=== PATIENT | male | born 1975 | race Caucasian/White ===

== ENCOUNTER 2017-02-04 19:57 | Emergency (ER) | payer OTHER ==
[2017-02-04] MEDS ORDERED: Ketorolac INJ* 60 MG/2 ML VIAL IM ONE (22:09)
[2017-02-04 22:36] VITALS: BP 98/68
--- NOTE | 2017-02-04 22:51 | RAD ---
INDICATION: Hematuria, back pain and hematospermia. COMPARISON: There are no prior studies available for comparison. TECHNIQUE: A CT scan of the abdomen and pelvis was performed without intravenous or oral contrast. Contiguous axial sections were obtained from the lung bases through the symphysis pubis. Images were reconstructed in the coronal and sagittal planes. FINDINGS: The lung bases are clear. No pleural effusion is present. The liver and spleen are normal in size without significant focal abnormality on this noncontrast study. The patient is status post cholecystectomy. The pancreas appears to be within normal limits. The adrenal glands and kidneys are normal in size. No renal calculi or hydronephrosis is seen. The prostate gland appears mildly enlarged. The seminal vesicles appear bilaterally symmetric. The aorta is normal in caliber without significant calcific plaque. No significant enlarged retroperitoneal lymph nodes are seen. The stomach, small and large bowel appear nondistended. The appendix is within normal limits. There is mild descending and sigmoid diverticulosis without evidence for diverticulitis. There is a small periumbilical hernia containing fat. No free intraperitoneal air or fluid is seen. No significant focal osseous abnormality is seen. IMPRESSION: 1. NO EVIDENCE FOR ACUTE FINDING. 2. NO CAUSE FOR THE PATIENT'S HEMATURIA IS SEEN. CONSIDER AN OUTPATIENT CT UROGRAM FOR FURTHER EVALUATION.
[2017-02-04] MEDS ORDERED: HYDROcodone/ACETAMIN 5-325 MG* 1 TAB PO ONE (23:14)
[2017-02-04] MEDS ORDERED: Cyclobenzaprine TAB* 10 MG PO ONE (23:15)
--- NOTE | 2017-02-16 07:11 | UC ---
otilia Ag Timothy, scribed for Rossana Toussaint MD on 02/04/17 at 2043 . Back Pain HPI - HPI Summary HPI Summary: Cristóbal Monge is a 41 yo male presenting to [facility] with 8/10 burning lower back pain for the past day, with blood in his semen 2 days ago, as well as 10 years ago. He has had similar episodes of blood in his semen 2 months ago, 6-8 times between then and now. He states he had back pain in September 2016.He denies any abd pain. He has been driving to [employer] and renovating his house recently. He was advised by his urologist and PCP to present to [facility]. His MHx includes Lyme disease 10 years ago, bronchitis, cholecystectomy , herpes II, depression. - History of Current Complaint Chief Complaint: UCBackPain Stated Complaint: BACK PAIN Time Seen by Provider: 02/04/17 20:23 Hx Obtained From: Patient Onset/Duration: Gradual Onset, Lasting Days, Still Present Timing: Constant Severity Initially: Moderate Severity Currently: Moderate Pain Intensity: 8 Pain Scale Used: 0-10 Numeric Back Pain: Is Discrete @ - lower back Character: Burning Aggravating: Nothing Alleviating: Nothing Associated Signs And Symptoms: Positive: Abdominal Pain, Other - blood in semen - Allergies/Home Medications Allergies/Adverse Reactions: Allergies Allergy/AdvReac Type Severity Reaction Status Date / Time No Known Allergies Allergy Verified 06/25/16 08:44 PMH/Surg Hx/FS Hx/Imm Hx Endocrine History Of: Denies: Diabetes, Thyroid Disease Cardiovascular History Of: Denies: Cardiac Disorders, Hypertension Respiratory History Of: Reports: Bronchitis Denies: COPD, Asthma GI/ History Of: Denies: Ulcer Psychological History Of: Reports: Depression - Surgical History Surgical History: Yes Surgery Procedure, Year, and Place: sublingual gland removedWISDOM TEETH. LASIK. CHOLECYSTECTOMY - Family History Known Family History: Negative: Renal Disease - Social History Lives: With Family Alcohol Use: None Substance Use Type: None Smoking Status (MU): Former Smoker Type: Cigarettes Amount Used/How Often: 1/2 PPD FOR 5 YRS WHILE IN COLLEGE Length of Time of Smoking/Using Tobacco: 5 YRS Have You Smoked in the Last Year: No When Did the Patient Quit Smoking/Using Tobacco: 1999 Review of Systems Constitutional: Negative Skin: Negative Eyes: Negative ENT: Negative Respiratory: Negative Cardiovascular: Negative Gastrointestinal: Negative Genitourinary: Other - blood in semen Motor: Negative Neurovascular: Negative Musculoskeletal: Other: - lower back pain Neurological: Negative Psychological: Negative All Other Systems Reviewed And Are Negative: Yes Physical Exam Triage Information Reviewed: Yes Appearance: No Pain Distress, Well-Nourished, Ill-Appearing Vital Signs: Initial Vital Signs Temp 100 F 02/04/17 20:15 Pulse 97 02/04/17 20:15 Resp 18 02/04/17 20:15 BP 143/70 02/04/17 20:15 Pulse Ox 100 02/04/17 20:15 Vital Signs Reviewed: Yes Eyes: Positive: Conjunctiva Clear. Negative: Discharge ENT: Positive: Hearing grossly normal. Negative: Muffled/hoarse voice Neck: Positive: Supple, Nontender Respiratory: Positive: Lungs clear, Normal breath sounds, No respiratory distress Cardiovascular: Positive: RRR, No Murmur, Pulses Normal, Brisk Capillary Refill Musculoskeletal: Positive: Strength Intact, ROM Intact, Other: - pain in bilateral paraspinus lumbar region. Back spasms. Neurological: Positive: Alert, Muscle Tone Normal Psychological Exam: Normal Psychological: Positive: Age Appropriate Behavior Skin Exam: Normal Skin: Negative: rashes Diagnostics - Radiology CT A/P Xray Interpretation: No Acute Changes - No evidence for acute finding. No cause for the patient's hematuria is seen. Consider an outpatient CT urogram for further evaluation. Radiology Interpretation Completed By: Radiologist Re-Evaluation - Re-Evaluation First Eval Re-Evaluation Time: 23:02 Change: Unchanged Comment: Pt is informed of the results of CT A/P. He states the pain medication administered took the edge off his pain. Back Pain Course/Dx - Course Course Of Treatment: Cristóbal Monge is a 41 yo male presenting to [facility] with 8/10 lower back pain and blood in his semen in the past day. His CT A/P suggested no evidence for acute disease. After clinical examination and review of his lab work and negative CT A/P, he will be discharged home with back pain, hematuria, and hematospermia with appropriate instructions. UA. color: yellow. clarity: clear. pH: 5.5. specific gravity: 1.005. protein: negative. glucose negative. ketones: 1+. blood: 1+. nitrite: negative. bilirubin: negative. urobilinogen: .2. leukocyte esteras: negative - Differential Dx/Diagnosis Differential Diagnosis/HQI/PQRI: Other - back pain Provider Diagnoses: back pain, hematuria, hematospermia Discharge - Discharge Plan Condition: Stable Disposition: HOME Prescriptions: Cyclobenzaprine TAB* [Flexeril 10 MG TAB*] 10 mg PO TID PRN #30 tab PRN Reason: Pain HYDROcodone/ACETAMIN 5-325 MG* [Beccaria 5-325 TAB*] 1 tab PO Q6H PRN #10 tab MDD 4 PRN Reason: Pain Patient Education Materials: Back Pain (ED), Hematuria (ED) Referrals: No Primary Care Phys,NOPCP [Primary Care Provider] - [facility] REFERRAL [Outside] - 2 Days Lloyd Caldwell MD [Medical Doctor] - 2 Days Additional Instructions: Please follow up with the primary care physician provided or Dr. Caldwell, the urologist, regarding your presentation to urgent care today. Return to urgent care or the emergency department with any new or recurring symptoms. The documentation as recorded by the otilia canales Timothy accurately reflects the service I personally performed and the decisions made by , Rossana Toussaint MD.
== END 2017-02-04 23:38 | disposition home or self-care (01) ==
LOC: UCEAST 19:57
DX: M54.5 Low back pain (principal); R31.9 Hematuria, unspecified; R36.1 Hematospermia; Z87.891 Personal history of nicotine dependence
CPT/HCPCS: 74176; 81003; 96372; 99212; A9270-GY; G0463; J1885

== ENCOUNTER 2018-02-24 13:50 | Emergency (ER) | payer OTHER ==
--- OUTSIDE RECORDS SUMMARY | 2018-02-24 13:56 | XMS REPORT ---
:1975 External Reference #:[id number] Author Organization [facility] Address [address] [place] [address] Phone [phone] Care Team Providers Name Role Phone Kvng Gibson MD Primary Care Physician Unavailable Payers Type Date Identification Payment Subscriber Numbers Provider Health Maintenance Effective: Policy Number: Aetna([employer] Cristóbal [employer] ([employer]) 10/12/2015 [id number] Choice) [employer] Number: [id number] [address] PayID: [id number] [place] [address] Problems Description No Information Family History Date Family Member(s) Problem(s) Comments General Troy-Creutzfeld disease. Uncle had it. Sister was tested and is a carrier. Does not want to get tested for insurance reasons. Stopped giving blood. General Diabetes General [place] Father Diabetes Father Nonhodgkin's Lymphoma dec. age 69 Father [place] Social History Type Date Description Comments Marital Status Lives With Female Partner Greta Monge Lives With Sons Grace Brooks Allergies, Adverse Reactions, Alerts Date Description Reaction Status Severity Comments 08/21/2017 NKDA active Medications Medication Date Status Form Strength Qnty SIG Indications Ordering Provider Wellbutrin XL 09/11/ Active Tablets ER 300mg 90tabs 1 by Kvng 2015 24HR mouth [place], every day Tamiflu 11/09/ Hx Capsules 75mg 10caps take 1 Kvng 2017 - capsule [place], 01/25/ by mouth 2018 2 times per day for 5 days for flu Azithromycin 08/21/ Hx Tablets 250mg 6tabs 2 by Pb Green 2016 - mouth Storm, 08/31/ today CHILD CARE SPECIALIST-C 2017 then 1 by mouth daily for 4 days Benzonatate 08/21/ Hx Capsules 200mg 30caps 1 by Pb Green 2017 - mouth Storm, 08/31/ three CHILD CARE SPECIALIST-C 2017 times a day for cough Ventolin HFA 08/21/ Hx Aerosol 108(90Base 8.5uni inhale Pb Green 2016 - ) mcg/Act ts two puffs Storm, 01/25/ by mouth CHILD CARE SPECIALIST-C 2017 every 4 hours as needed for wheeze Tizanidine HCL 10/21/ Hx Tablets 4mg 30tabs take Kvng 2017 - 1/2-1 Arthur, 02/25/ tablet by 2016 mouth every 8 hours as needed for muscle spasm Nabumetone 10/14/ Hx Tablets 750mg 14tabs 2 tabs by Reina5 Kvng 2016 - mouth Arthur, 01/25/ once 2017 daily Metaxalone 10/14/ Hx Tablets 800mg 30tabs 1/2 to 1 M54.5 Kvng 2016 - tab by Arthur, 01/25/ mouth 2018 three times a day for muscle spasm Zovirax 09/11/ Hx Tablets 800mg 30tabs Take One Kvng 2015 - Tablet By Arthur 01/25/ Mouth 2017 Twice A Day For 5 Days Immunizations CPT Code Status Date Vaccine Lot # [id number] Given 01/25/2018 Tdap (Adacel) [id number] Given 06/19/2016 Influenza Virus Vaccine, Quadrivalent, 3 Yr > Quad, Preserv Free Vital Signs Date Vital Result Comment 01/25/2018 Weight 245.00 lb Weight in kg's 111.132 BP Systolic 132 mmHg BP Diastolic 74 mmHg Heart Rate 72 /min Body Temperature 97.3 F Respiratory Rate 16 /min Height 74 inches 6'2" BMI (Body Mass Index) 31.5 kg/m2 O2 % BldC Oximetry 98 % 08/21/2017 Weight 233.00 lb Weight in kg's 105.689 BP Systolic 138 mmHg BP Diastolic 70 mmHg Heart Rate 70 /min Body Temperature 97.1 F O2 % BldC Oximetry 97 % 02/05/2017 Weight 231.00 lb Weight in kg's 104.782 BP Systolic 140 mmHg BP Diastolic 70 mmHg Heart Rate 84 /min Body Temperature 98.2 F 10/14/2016 Weight 235.00 lb Weight in kg's 106.596 BP Systolic 130 mmHg BP Diastolic 80 mmHg Heart Rate 72 /min Body Temperature 97.0 F Respiratory Rate 12 /min 09/11/2016 Weight 239.00 lb Weight in kg's 108.410 BP Systolic 130 mmHg BP Diastolic 80 mmHg Heart Rate 72 /min Body Temperature 98.2 F Respiratory Rate 12 /min Height 74 inches 6'2" BMI (Body Mass Index) 30.7 kg/m2 Results Test Date Test Result H/L Range Note CBC No Diff 02/13/2017 White Blood Count 6.5 10^3/uL 3.5-10.8 Red Blood Count 4.38 10^6/uL 4.0-5.4 Hemoglobin 13.4 g/dL Low 14.0-18.0 Hematocrit 39 % Low 42-52 Mean Corpuscular Volume 89 fL 80-94 Mean Corpuscular Hemoglobin 31 pg 27-31 Mean Corpuscular HGB Conc 35 g/dL 31-36 Red Cell Distribution Width 13 % 10.5-15 Platelet Count 206 10^3/uL 150-450 Mean Platelet Volume 8 um3 7.4-10.4 Comp Metabolic Panel 02/13/2017 Sodium 134 mmol/L 133-145 Potassium 4.1 mmol/L 3.5-5.0 Chloride 102 mmol/L 101-111 Co2 Carbon Dioxide 28 mmol/L 22-32 Anion Gap 4 mmol/L 2-11 Glucose 93 mg/dL 70-100 Blood Urea Nitrogen 15 mg/dL 6-24 Creatinine 1.12 mg/dL 0.67-1.17 BUN/Creatinine Ratio 13.4 8-20 Calcium 8.8 mg/dL 8.6-10.3 Total Protein 6.3 g/dL Low 6.4-8.9 Albumin 4.3 g/dL 3.2-5.2 Globulin 2.0 g/dL 2-4 Albumin/Globulin Ratio 2.2 1-3 Total Bilirubin 0.50 mg/dL 0.2-1.0 Alkaline Phosphatase 45 U/L 34-104 Alt 19 U/L 7-52 Ast 26 U/L 13-39 Egfr Non- 72.6 >60 Egfr 93.4 >60 1 Lipid Profile (Trig/Chol/HDL) 09/11/2016 Triglycerides 97 mg/dL 2 Cholesterol 195 mg/dL 3 HDL Cholesterol 46.6 mg/dL 4 LDL Cholesterol 129 mg/dL 5 HIV 1/2 AB Evaluation 09/11/2016 HIV 1 2 Antibody Nonreactive Nonreactive 6 Laboratory test 09/11/2016 Hemoglobin A1c (Glyco 5.2 % Less than 6.0 7 finding HGB) CBC Auto Diff 09/11/2016 White Blood Count 6.8 10^3/uL 3.5-10.8 Red Blood Count 4.83 10^6/uL 4.0-5.4 Hemoglobin 14.5 g/dL 14.0-18.0 Hematocrit 44 % 42-52 Mean Corpuscular Volume 90 fL 80-94 Mean Corpuscular Hemoglobin 30 pg 27-31 Mean Corpuscular HGB Conc 33 g/dL 31-36 Red Cell Distribution Width 13 % 10.5-15 Platelet Count 245 10^3/uL 150-450 Mean Platelet Volume 8 um3 7.4-10.4 Abs Neutrophils 4.6 10^3/uL 1.5-7.7 Abs Lymphocytes 1.8 10^3/uL 1.0-4.8 Abs Monocytes 0.4 10^3/uL 0-0.8 Abs Eosinophils 0.1 10^3/uL 0-0.6 Abs Basophils 0 10^3/uL 0-0.2 Abs Nucleated RBC 0 10^3/uL Granulocyte % 66.8 % 38-83 Lymphocyte % 25.9 % 25-47 Monocyte % 5.7 % 1-9 Eosinophil % 1.1 % 0-6 Basophil % 0.5 % 0-2 Nucleated Red Blood Cells % 0 Comp Metabolic Panel 09/11/2016 Sodium 137 mmol/L 133-145 Potassium 4.2 mmol/L 3.5-5.0 Chloride 104 mmol/L 101-111 Co2 Carbon Dioxide 31 mmol/L 22-32 Anion Gap 2 mmol/L 2-11 Glucose 90 mg/dL 70-100 Blood Urea Nitrogen 15 mg/dL 6-24 Creatinine 0.96 mg/dL 0.67-1.17 BUN/Creatinine Ratio 15.6 8-20 Calcium 9.3 mg/dL 8.6-10.3 Total Protein 6.8 g/dL 6.4-8.9 Albumin 4.4 g/dL 3.2-5.2 Globulin 2.4 g/dL 2-4 Albumin/Globulin Ratio 1.8 1-3 Total Bilirubin 0.80 mg/dL 0.2-1.0 Alkaline Phosphatase 36 U/L 34-104 Alt 22 U/L 7-52 Ast 23 U/L 13-39 Egfr Non- 86.8 >60 Egfr 111.6 >60 8 Laboratory test finding 09/11/2016 TSH (Thyroid Stim Horm) 1.08 mcIU/mL 0.34-5.60 9 1 Because ethnic data is not always readily available, this report includes an eGFR for both -Americans and non- Americans. The National Kidney Disease Education Program (NKDEP) does not endorse the use of the MDRD equation for patients that are not between the ages of 18 and 70, are , have extremes of body size, muscle mass, or nutritional status, or are non- or non-. According to the National Kidney Foundation, irrespective of diagnosis, the stage of the disease is based on the level of kidney function: Stage Description GFR(mL/min/1.73 m(2)) 1 Kidney damage with normal or decreased GFR 90 2 Kidney damage with mild decrease in GFR 60-89 3 Moderate decrease in GFR 30-59 4 Severe decrease in GFR 15-29 5 Kidney failure <15 (or dialysis) 2 Desirable <150 Borderline high 150-199 High 200-499 Very High >500 3 Desirable <200 Borderline high 200-239 High >239 4 Low <40 Desirable: 40-60 High: >60 5 Desirable: <100 mg/dL Near Optimal: 100-129 mg/dL Borderline High: 130-159 mg/dL High: 160-189 mg/dL Very High: >189 mg/dL 6 It is recognized that currently available assays for the detection of antibodies to HIV-1 and/or HIV-2 may not detect all infected individuals. HIV antibodies may be undetectable in some stages of the infection and in some clinical conditions. The performance of this assay has not been established for populations of infants or children. Assayed by Chemiluminescence Microparticle Immunoassay on the Siemens Advia Centaur CP. Values obtained with different methods or kits cannot be used interchangeably.The diagnostic specificity of the ADVIA Centaur 1/O/2 Enhanced assay in the low risk population was 99.90% (6052/6058) with a 95% confidence interval of 99.78 to 99.96%. 7 Therapeutic target for the treatment of diabetes Mellitus patients is <7% HBA1C, and in selective patients <6.0%.Please refer to [place] Diabetes Association Diabetic care guidelines for further information. 8 Because ethnic data is not always readily available, this report includes an eGFR for both -Americans and non- Americans. The National Kidney Disease Education Program (NKDEP) does not endorse the use of the MDRD equation for patients that are not between the ages of 18 and 70, are , have extremes of body size, muscle mass, or nutritional status, or are non- or non-. According to the National Kidney Foundation, irrespective of diagnosis, the stage of the disease is based on the level of kidney function: Stage Description GFR(mL/min/1.73 m(2)) 1 Kidney damage with normal or decreased GFR 90 2 Kidney damage with mild decrease in GFR 60-89 3 Moderate decrease in GFR 30-59 4 Severe decrease in GFR 15-29 5 Kidney failure <15 (or dialysis) 9 FASTING [id number] Procedures Description No Information Encounters Type Date Location Provider CPT E/M Dx Office Visit 08/21/2017 9:30a Main Office Marlee Rod [facility] CARE SPECIALIST-C [address]10 J20.9 Office Visit 02/05/2017 9:45a [place] [address] M54.5 R36.1 Office Visit 10/14/2016 10:45a Main Office WANG Moon III-C 65026 M54.5 Office Visit 09/11/2016 2:30p [place] [address] F43.21 B00.9 Z00.8 Plan of Care 01/25/2018 - Kvng Gibson MDZ00.8 Encounter for other general examinationComments:He is doing well today. He has some concerns about his health, but we are able to at least point himin the right direction to address them.Z84.81 Family history of carrier of genetic diseaseFollow up:Refer to Genetic counseling, family history of Troy-creutzfeld disease. His sister has tested positive as a carrier. His maternal uncle with the disease.F32.9 Major depressive disorder, single episode, unspecifiedComments: His depression seems to be well-controlled as long as he stays in the Wellbutrin. Since stopping, hefeels a little bit worse.He has had some anxiety lately, mostly about his potential for having Kyle Darron disease, as well as a nonhealing lesion on his lower lip. I would consider these reasonable rather than unreasonable fears.D37.01 Neoplasm of uncertain behavior of lipComments:There is a small ulcerated area on his lower lip. It has not healed for months. I would not be surprised at all if this were a squamous cell cancer or a basal cell cancer.He brought it up because he wanted to make sure it was reasonable to go see dermatology. I advised him to keep his upcoming appointment.
--- OUTSIDE RECORDS SUMMARY | 2018-02-24 13:56 | XMS REPORT ---
:1975 External Reference #:[id number] Author Organization [facility] Address [address] [place] [address] Phone [phone] Care Team Providers Name Role Phone Kvng Gibson MD Primary Care Physician Unavailable Payers Type Date Identification Payment Subscriber Numbers Provider Health Maintenance Effective: Policy Number: Aetna([employer] Cristóbal [employer] ([employer]) 10/12/2015 [id number] Choice) [employer] Number: [id number] [address] PayID: [id number] [place] [address] Problems Description No Information Family History Date Family Member(s) Problem(s) Comments General Troy-Creutzfeld disease. Uncle had it. Sister was tested and is a carrier. Does not want to get tested for insurance reasons. Stopped giving blood. General Diabetes General [place] Father Diabetes Father Nonhodgkin's Lymphoma dec. age 69 Father [place] Social History Type Date Description Comments Marital [...] Tablets 250mg 6tabs 2 by Pb Green 2017 - mouth Storm, 08/31/ today BOOTH CLEANER-C 2017 then 1 by mouth daily for 4 days Benzonatate 08/21/ Hx Capsules 200mg 30caps 1 by Pb Green 2017 - mouth Storm, 08/31/ three BOOTH CLEANER-C 2017 times a day for cough Ventolin HFA 08/21/ Hx Aerosol 108(90Base 8.5uni inhale Pb Green 2016 - ) mcg/Act ts two puffs Storm, 01/25/ by mouth BOOTH CLEANER-C 2017 every 4 hours as needed for wheeze Tizanidine HCL 10/21/ Hx Tablets 4mg 30tabs take Kvng 2017 - 1/2-1 Arthur, 02/25/ tablet by 2016 mouth every 8 hours as needed for muscle spasm Nabumetone 10/14/ Hx Tablets 750mg 14tabs 2 tabs by Skyler Calderon 2016 - mouth Arthur, 01/25/ once 2017 daily Metaxalone 10/14/ Hx Tablets 800mg 30tabs 1/2 to 1 M54.5 Kvng 2016 - tab by Arthur, 01/25/ mouth 2017 three times a day for muscle spasm Zovirax 09/11/ Hx Tablets 800mg 30tabs Take One Kvng 2015 - Tablet By Arthur 01/25/ Mouth 2017 Twice A Day For 5 Days Immunizations CPT Code Status Date Vaccine Lot # 66669 Given 01/25/2018 Tdap (Adacel) [id number] Given 06/19/2016 Influenza Virus Vaccine, Quadrivalent, 3 Yr > Quad, Preserv Free Vital Signs Date Vital Result Comment 02/03/2018 Weight 242.00 lb Weight in kg's 109.771 BP Systolic 140 mmHg BP Diastolic 90 mmHg Heart Rate 92 /min Body Temperature 98.1 F Respiratory Rate 18 /min O2 % BldC Oximetry 99 % 01/25/2018 Weight 245.00 lb Weight in kg's [...] and in selective patients <6.0%.Please refer to [place] Diabetes Association Diabetic care guidelines for further [...] Kidney failure <15 (or dialysis) 9 FASTING [id number] Procedures Description No Information Encounters Type Date Location Provider CPT E/M Dx Office Visit 02/03/2018 11:30a [place] [address] D48.5 Office Visit 01/25/2018 1:00p [place] [address] Z00.8 Z84.81 F32.9 D37.01 Z23 Office Visit 08/21/2017 9:30a Main Office VEE NicholeP-C 76881 J20.9 Office Visit 02/05/2017 9:45a [place] [address] M54.5 R36.1 Office Visit 10/14/2016 10:45a Main Office Michael Suarez III, BOOTH CLEANER-C [address]2548 M54.5 Office Visit 09/11/2016 2:30p [place] [address] F43.21 B00.9 Z00.8 Plan of Care 02/03/2018 - Kvng Gibson, MDD48.5 Neoplasm of uncertain behavior of skinComments:He had a biopsy of his lip lesion. The rn case mgr who performed it suggested he come here to havethe suture removed rather than go all the way to [facility].We cleansed the area with isopropyl alcohol, then removed the suture. There was only slight difficulty in reaching the suture, the skin had to be broken slightly to accomplish this, resulting in the loss of a single drop of blood. PAtient tolerated this well. It was dressed with the topical abx given him by derm, he will follow their skin care regimen.
[2018-02-24 14:01] VITALS: BP 129/77
--- NOTE | 2018-02-24 14:39 | RAD ---
HISTORY: Right hand pain with deformity COMPARISONS: None VIEWS: 4, Frontal, lateral, and oblique views of the right hand FINDINGS: BONE DENSITY: Normal. BONES: There is no displaced fracture. JOINTS: There is no arthropathy. ALIGNMENT: There is no dislocation. SOFT TISSUES: There is a faint linear radiopaque foreign body within the soft tissues along the palmar aspect of the right hand between the first and second metacarpals, along the thenar eminence. This measures approximately 0.9 cm in length OTHER FINDINGS: None. IMPRESSION: FAINT, 0.9 CM LINEAR RADIOPAQUE FOREIGN BODY IN THE SOFT TISSUES ALONG THE PALMAR ASPECT OF THE RIGHT HAND BETWEEN THE FIRST AND SECOND METATARSAL CARPALS. NO ACUTE OSSEOUS INJURY. IF SYMPTOMS PERSIST, RECOMMEND REPEAT IMAGING.
--- NOTE | 2018-02-24 15:10 | UC ---
Hand/Wrist HPI - HPI Summary HPI Summary: Patient is a 42-year-old male presenting to the with chief complaint of right hand pain. He states there is pain discretely located over the thenar eminence with a palpable nodule. Pain is been present for over 1 week and states now the pain radiates up to the wrist and down to the fingertips of the second and third digits. Also endorses limitations of range of motion of the thumb. Opposition exercises all intact. Pulses +2 intact bilaterally radially. He states he was shoveling object over 1 week ago very hard and remembers pressing into the area, thinking this was a bruise. He states he feels like there is something under the skin such as a sliver. There is no erythema or warmth. No other signs of infection. - History Of Current Complaint Chief Complaint: UCUpperExtremity Stated Complaint: HAND INJURY Time Seen by Provider: 02/24/18 14:03 Hx Obtained From: Patient ?: No Onset/Duration: Sudden Onset Severity Initially: Mild Severity Currently: Mild Pain Intensity: 0 Pain Scale Used: 0-10 Numeric Character Of Pain: Aching Aggravating Factor(s): Lifting, Internal/External Rotation Alleviating Factor(s): Rest, Ice - Risk Factors Compartment Syndrome Risk Factors: Pain - Allergies/Home Medications Allergies/Adverse Reactions: Allergies Allergy/AdvReac Type Severity Reaction Status Date / Time No Known Allergies Allergy Verified 02/24/18 14:01 PMH/Surg Hx/FS Hx/Imm Hx Previously Healthy: Yes - Maurice in the back with his computer watchman - Surgical History Surgical History: Yes Surgery Procedure, Year, and Place: sublingual gland removedWISDOM TEETH. LASIK. CHOLECYSTECTOMY - Family History Known Family History: Positive: None - Social History Occupation: Employed Full-time Alcohol Use: None Substance Use Type: None Smoking Status (MU): Former Smoker Type: Cigarettes Amount Used/How Often: 1/2 PPD FOR 5 YRS WHILE IN COLLEGE Length of Time of Smoking/Using Tobacco: 5 YRS Have You Smoked in the Last Year: No When Did the Patient Quit Smoking/Using Tobacco: 1999 Review of Systems Constitutional: Negative Skin: Negative Respiratory: Negative Cardiovascular: Negative Gastrointestinal: Negative Motor: Decreased ROM - to the thumb opposition exercises Musculoskeletal: Arthralgia Neurological: Negative Is Patient Immunocompromised?: No All Other Systems Reviewed And Are Negative: Yes Physical Exam Triage Information Reviewed: Yes Appearance: Well-Appearing, Well-Nourished Vital Signs: Initial Vital Signs Temp 97.9 F 02/24/18 13:56 Pulse 81 02/24/18 13:56 Resp 18 02/24/18 13:56 BP 129/77 02/24/18 13:56 Pulse Ox 100 02/24/18 13:56 Vital Signs Reviewed: Yes Eye Exam: Normal Eyes: Positive: Conjunctiva Clear Neck exam: Normal Neck: Positive: Supple, No Lymphadenopathy Respiratory Exam: Normal Respiratory: Positive: Chest non-tender, Lungs clear Musculoskeletal: Positive: Strength Intact Neurological Exam: Normal Neurological: Positive: Alert Psychological: Positive: Normal Response To Family Skin Exam: Normal Hand/Wrist Course/Dx - Course Course Of Treatment: Patient is evaluated for right hand pain. Unknown injury. Unknown foreign body. She was sent to x-ray. X-ray shows:IMPRESSION: FAINT , 0.9 CM LINEAR RADIOPAQUE FOREIGN BODY IN THE SOFT TISSUES ALONG THE PALMAR ASPECT. OF THE RIGHT HAND BETWEEN THE FIRST AND SECOND METATARSAL CARPALS. NO ACUTE OSSEOUS. INJURY. IF SYMPTOMS PERSIST, RECOMMEND REPEAT IMAGING. Patient is made aware. I discussed results with the patient treatment options. I do not feel comfortable attempting to dislodge the foreign body as it is very thin. I have advised he follow-up with a hand surgeon for further evaluation. He is given a cock-up splint on his request to refrain from moving the thumb. - Differential Dx/Diagnosis Provider Diagnoses: Soft Tissue Foreign Body Discharge - Sign-Out/Discharge Documenting (check all that apply): Discharge/Admit/Transfer - Discharge Plan Condition: Stable Disposition: HOME Patient Education Materials: Soft Tissue Foreign Body (ED) Referrals: Kvng Gibson MD [Primary Care Provider] - Edgardo Can MD [Medical Doctor] - Additional Instructions: Please make an appt with Dr. Can Splint - keep applied - Billing Disposition and Condition Condition: STABLE Disposition: HOME
== END 2018-02-24 15:00 | disposition home or self-care (01) ==
LOC: UCEAST 13:50
DX: S60.551A Superficial foreign body of right hand, initial encounter (principal); X58.XXXA Exposure to other specified factors, initial encounter; Y93.H1 Activity, digging, shoveling and raking; Y92.9 Unspecified place or not applicable; Z87.891 Personal history of nicotine dependence
CPT/HCPCS: 99212; G0463

== ENCOUNTER 2018-03-05 09:14 | Day surgery (SDC) | payer OTHER ==
--- NOTE | 2018-03-03 12:02 | HP ---
PREOPERATIVE HISTORY AND PHYSICAL: DATE OF SURGERY/ADMISSION: 03/05/18 - OR [facility] DATE OF OFFICE VISIT/ENCOUNTER: 03/01/18. ATTENDING SURGEON: Evangelina Mcpherson MD.* (DICTATED BY AYSHA FLORES) PROCEDURE: Right hand incision and drainage, removal of foreign body. CHIEF COMPLAINT: Foreign body, right hand. HISTORY OF PRESENT ILLNESS: This is a 42-year-old male who complains of pain in his right hand and associated numbness since 02/18/18. He does not recall any remote injury, but recently he was working on a trailer and he did jam a ena pin in with his hand and since then he has had pain along with numbness. He does not recall having any puncture in his skin at that point. He noticed a bump in the palm of his hand and has had intermittent numbness in his thumb and index finger and a burning pain as well. He feels like something in his hand is moving around and he has to manipulate his thumb at times to get it to be in the more comfortable position. He was recently seen in [facility] and had an x-ray, which shows what looked to be a metallic foreign body in the thenar eminence in the first webspace of the right hand. He would like to have the foreign body removed. PAST MEDICAL HISTORY: 1. Seasonal allergies. 2. Anxiety. PAST SURGICAL HISTORY: 1. Cholecystectomy. 2. Sublingual gland removed. 3. Biopsies for suspicious skin lesion on patient's lip. CURRENT MEDICATIONS: 1. Wellbutrin SR 150 mg daily. 2. Zyrtec allergy 10 mg daily. ALLERGIES: No known drug allergies. FAMILY MEDICAL HISTORY: Diabetes, heart disease, cancer. 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 He is a former smoker. He quit 10 years ago. Prior to that, he smoked approximately a pack per day for 10 years. He denies recreational drug use. He does not currently drink alcohol. Reports he stopped drinking 10 years ago. REVIEW OF SYSTEMS: General: Positive for night sweats. Negative for fever or chills, unexplained weight loss or gain, no anesthesia problem. HEENT: Negative for headache, lightheadedness, syncopal episode, visual changes. Integumentary: Negative for abrasions, lesions, open wounds. Cardiothoracic: Negative for hypertension, chest pain, palpitations or edema. Respiratory: Negative for shortness of breath with exertion, chronic cough, wheezing. GI: Negative for nausea, vomiting, diarrhea, constipation, GERD. : Negative for nocturia, urinary frequency, urgency, history of UTI, or kidney problems. Musculoskeletal: Positive for current complaint. Negative for chronic or intermittent back pain. No history of fractures. Neurological: Positive for anxiety. Negative for paresthesias, numbness, history of seizure, stroke, poor balance. Endocrine: Negative for diabetes and thyroid issues. Hematologic: Negative for easy bruising, anemia, bleeding disorders, history of DVT. Infectious Disease: Negative for history of MRSA, hepatitis C, HIV. PHYSICAL EXAMINATION GENERAL: Well-developed, well-nourished 42-year-old male in no acute distress. VITAL SIGNS: Height 6 feet 2 inches, weight 242 pounds, pulse rate 76, blood pressure 120/68. HEENT: Normocephalic, atraumatic. Pupils are equal, round and reactive to light and accommodation. Extraocular movements are intact. Throat is clear. NECK: Supple. No palpable lymph nodes. PULMONARY: :Lungs are clear to auscultation bilaterally. No wheezes, rales or rhonchi. CARDIOVASCULAR: Regular rate and rhythm. S1, S2. No murmurs, rubs or gallops. No edema. ABDOMEN: Positive bowel sounds, soft, nontender. NEUROLOGICAL: Alert and oriented x3. Cranial nerves II through XII are intact. Sensation is intact to light touch. MUSCULOSKELETAL: On exam of his right hand, there is a tender lump just distal to the thenar eminence. He has decreased sensation in the palm of his hand distal to the lump. He has active flexion and extension of the thumb. When he moves his thumb in opposition, he feels intense increase in the pain. When he keeps the thumb abducted, it feels better. IMAGING STUDIES: AP, lateral, and oblique of the right hand show a metallic foreign body in the first webspace and thenar eminence of the right hand. ASSESSMENT: Foreign body right hand. PLAN: Patient is scheduled to undergo right hand incision and drainage, removal of foreign body with Dr. Mcpherson on 03/05/18. He will return to the office in 10 days for postoperative followup and suture removal. Prescription for Tylenol No. 3 was e-scribed to the patient 's pharmacy for postoperative pain management. AYSHA FLORES [id number]/[facility] #: [id number] MICHAEL
[~2018-03-05 09:14] MED LIST: Buffered Lidocaine 0.9% SYRIN* 5 ML/SYR SYRINGE INTRADERM ONE; Lidocaine 1% INJ* 10 MG/ML 30 ML SDV ONE; Sodium Citrate/Citric Acid* 15 ML UDC PO ONE
[2018-03-05] MEDS ORDERED: Sodium Citrate/Citric Acid* 15 ML UDC ONE (09:23)
[2018-03-05] MEDS ORDERED: Buffered Lidocaine 0.9% SYRIN* 5 ML/SYR SYRINGE ONE (09:43)
[2018-03-05] MEDS ORDERED: Naloxone* 0.4 MG/ML 1 ML VIAL IV PRN (11:15)
[2018-03-05] MEDS ORDERED: fentaNYL* 50 MCG/ML 2 ML VIAL (100 MCG VIAL) ONE (11:18)
[2018-03-05] MEDS ORDERED: Midazolam* 1 MG/ML 5 ML VIAL (5 MG) ONE (11:18)
[2018-03-05 12:08] VITALS: BP 119/75
--- NOTE | 2018-03-06 04:18 | OP ---
DATE OF OPERATION: 03/05/18 [facility] DATE OF : 77 SURGEON: Evangelina Mcpherson MD CASH REGISTER REPAIRER: AYSHA Hogue ANESTHESIA: Local MAC. PRE-OP DIAGNOSIS: Foreign body in the right hand. POST-OP DIAGNOSIS: Foreign body in the right hand. OPERATIVE PROCEDURE: Removal of foreign body in the right hand. INDICATION FOR PROCEDURE: Cristóbal is a 42-year-old man, who has a painful mass in the palm of his right hand and he feels electric shocks with certain motions of his thumb. He has a radiopaque foreign body in the area of his thenar eminence. He presents for foreign body removal. ESTIMATED BLOOD LOSS: Zero. TOURNIQUET TIME: Approximately 20 minutes. DESCRIPTION OF PROCEDURE: The patient was brought to the operating room, was given a sedation anesthetic and a local infiltration of 10 cc of 1% plain lidocaine in the palm of his right hand. The C-arm was used to localize the foreign body and an incision was made over the palpable mass. Foreign body was retrieved and it was a piece of glass. The wound was irrigated and skin edges reapproximated with 4-0 nylon suture. The wound was dressed with Xeroform, 4x4 , Webril, and Coban. The patient tolerated the procedure well and was brought to the recovery room in good condition. [id number]/[facility] #: [id number] MTDD
== END 2018-03-05 12:38 | disposition home or self-care (01) ==
LOC: OREAST 09:14
PROVIDERS: ATTEND Orthopaedic Surgery
DX: M79.5 Residual foreign body in soft tissue (principal); F41.9 Anxiety disorder, unspecified; J30.2 Other seasonal allergic rhinitis
CPT/HCPCS: 88300; A9270-GY; J2250; J3010

== ENCOUNTER 2019-11-26 10:56 | Emergency (ER) | payer OTHER ==
[2019-11-26 11:29] VITALS: BP 124/71
--- NOTE | 2019-11-26 12:06 | UC ---
Lower Extremity/Ankle HPI - HPI Summary HPI Summary: struck L foot on hard object after tripping over dog yesterday. had immediate pain L 1st/2nd toe, black and blue - History of Current Complaint Chief Complaint: UCLowerExtremity Stated Complaint: FOOT INJURY Time Seen by Provider: 11/26/19 11:53 Hx Obtained From: Patient Onset/Duration: Sudden Onset Severity Initially: Severe Severity Currently: Moderate Pain Intensity: 8 Aggravating Factor(s): Standing, Ambulation Alleviating Factor(s): Rest, Elevation, Ice Able to Bear Weight: Yes - Allergies/Home Medications Allergies/Adverse Reactions: Allergies Allergy/AdvReac Type Severity Reaction Status Date / Time No Known Allergies Allergy Verified 11/26/19 11:30 PMH/Surg Hx/FS Hx/Imm Hx Previously Healthy: Yes Psychological History: Depression - Surgical History Surgical History: Yes Surgery Procedure, Year, and Place: sublingual gland removed 06/2016, WISDOM TEETH. LASIK 2001. CHOLECYSTECTOMY 1999. 2018 GLASS REMOVED FROM HAND [facility] - Family History Known Family History: Positive: None - Social History Occupation: Employed Full-time Lives: With Family Alcohol Use: None Substance Use Type: None Smoking Status (MU): Former Smoker Type: Cigarettes Amount Used/How Often: 1/2 PPD FOR 5 YRS WHILE IN COLLEGE Length of Time of Smoking/Using Tobacco: 5 YRS Have You Smoked in the Last Year: No When Did the Patient Quit Smoking/Using Tobacco: 1999 Review of Systems All Other Systems Reviewed And Are Negative: Yes Constitutional: Positive: Negative Respiratory: Positive: Negative Cardiovascular: Positive: Negative Musculoskeletal: Positive: Decreased ROM, Other: - left foot Psychological: Positive: Negative Is Patient Immunocompromised?: No Physical Exam Triage Information Reviewed: Yes Appearance: Well-Appearing, No Pain Distress, Well-Nourished Vital Signs: Initial Vital Signs Temp 97.8 F 11/26/19 11:23 Pulse 73 11/26/19 11:23 Resp 12 11/26/19 11:23 BP 124/71 11/26/19 11:23 Pulse Ox 72 11/26/19 11:23 Vital Signs Reviewed: Yes Neck exam: Normal Respiratory Exam: Normal Respiratory: Positive: Lungs clear Cardiovascular Exam: Normal Cardiovascular: Positive: RRR Musculoskeletal: Positive: Other: - ecchymosis and pain L foot, 1st/2nd toes Neurological Exam: Normal Psychological Exam: Normal Skin Exam: Normal Diagnostics - Radiology No standard instances Radiology Interpretation Completed By: Radiologist - Content Patient Name: ABEL MALDONADO Medical Record#: [id number] Ordering Physician: Silas Melo NP Acct.#: [id number] : 12/1974 Age: 44 Sex: M Location: [facility] Exam Date: 11/26/19 1157 ADM Status: REG ER Order Information: FOOT LEFT 3+ VWS Accession Number: [id number] CPT: 73276 Indication: First and second toe pain after injury. 3 views of the left foot demonstrates suggestion of a fracture of the distal and of the proximal phalanx of the second digit. In addition a linear lucency is noted on the oblique views of the distal end of the proximal phalanx of the great toe suggestive of a nondisplaced fracture. IMPRESSION: There appears to be nondisplaced fractures of the distal end proximal phalanx of the great toe as well as the distal and of the proximal phalanx of the second toe. <Electronically signed by Kellie Carrillo MD in OV> 11/26/19 1234 Dictated By: Kellie Carrillo MD Dictated Date/Time: 11/26/19 1233 Transcribed Date/Time: 11/26/19 1233 Copy to: CC:[facility]; Kvng Gibson MD; Silas Melo NP Imaging - [facility] [address] [address] ph ([phone]) ph ([phone]) ph ([phone]) End of Report Content Lower Extremity Course/Dx - Differential Dx/Diagnosis Differential Diagnosis/HQI/PQRI: Contusion, Fracture (Closed), Strain Provider Diagnosis: Fractured toe Discharge ED - Sign-Out/Discharge Documenting (check all that apply): Patient Departure All imaging exams completed and their final reports reviewed: Yes - Discharge Plan Condition: Good Disposition: HOME Patient Education Materials: Toe Fracture (ED) Referrals: Kvng Gibson MD [Primary Care Provider] - Edgardo Can MD [Medical Doctor] - 3 Days (for recheck) Additional Instructions: elevate foot and apply ice use ibuprofen for pain as directed use post op shoe until rechecked by orthopedic - Billing Disposition and Condition Condition: GOOD Disposition: Home
== END 2019-11-26 13:01 | disposition home or self-care (01) ==
LOC: UCEAST 10:56
DX: S92.535A Nondisplaced fracture of distal phalanx of left lesser toe(s), initial encounter for closed fracture (principal); S92.415A Nondisplaced fracture of proximal phalanx of left great toe, initial encounter for closed fracture; S92.515A Nondisplaced fracture of proximal phalanx of left lesser toe(s), initial encounter for closed fracture; S92.425A Nondisplaced fracture of distal phalanx of left great toe, initial encounter for closed fracture; Z87.891 Personal history of nicotine dependence; W01.0XXA Fall on same level from slipping, tripping and stumbling without subsequent striking against object, initial encounter; Y92.9 Unspecified place or not applicable
CPT/HCPCS: 99212; G0463